=== PATIENT | male | born 1955 | race Caucasian/White ===

== ENCOUNTER 2019-11-23 03:00 | Emergency (ER) | payer OTHER, SELFPAY ==
[2019-11-23 03:01] VITALS: BP 132/80; PULSE 90; RESP 15; TEMP 37; O2SAT 97; BMI 22.6
--- NOTE | 2019-11-23 03:17 | RAD_ITS ---
STUDY: X-RAY - LEFT HAND REASON FOR EXAM: Male, 63 years old. Injury TECHNIQUE: 3 view(s) of the hand. COMPARISON: None. FINDINGS: Normal radiocarpal articulation. Normal distal radioulnar joint. Normal visualized carpal bones. Normal carpal articulations There is mild degenerative arthrosis of the carpometacarpal (CMC) articulation of the thumb. Normal second through fifth carpometacarpal joints. Mildly demineralized metacarpi. There is minimal degenerative arthrosis of the metacarpophalangeal (MCP) joints. There is degenerative arthrosis of the interphalangeal joint of the thumb with articular joint space narrowing. Normal proximal and distal phalanges of the thumb. Normal metacarpophalangeal joints of the second through fifth fingers. There is mild degenerative change in the distal interphalangeal joint of the second and fifth digits. Normal phalanges of the second through fifth fingers. The soft tissue structures are unremarkable. RAD/Hand Min 3 Views IMPRESSION: Degenerative change. No visualized acute fracture. Electronically Signed: Mahi Perez MD at 4:40 EDT Tel , Service support ,
--- NOTE | 2019-11-23 03:17 | RAD_ITS ---
STUDY: X-RAY - PELVIS REASON FOR EXAM: Male, 63 years old. Injury TECHNIQUE: One view of the pelvis was obtained. COMPARISON: None. FINDINGS: There is a non-specific bowel gas pattern. Is postoperative change within the pelvis and left lower quadrant. Normal bilateral iliac wings, sacroiliac joints and visualized sacrum. Normal visualized bilateral superior and inferior pubic rami. Normal pubic symphysis. Normal ischial tuberosities. Normal visualized right femoral head. Normal right acetabulum. Normal right hip joint. Normal visualized left femoral head. Normal left acetabulum. Normal left hip joint. RAD/Pelvis 1 or 2 Views IMPRESSION: Postoperative change in the abdomen and pelvis. No visualized acute fracture. Electronically Signed: Mahi Perez MD at 4:44 EDT Tel , Service support ,
[2019-11-23] MEDS: Acetaminophen 500 MG Tablet 1000 MG PO (03:22)
--- NOTE | 2019-11-23 03:30 | ED.DCSUM_ITS ---
History of Present Illness Chief Complaint: Fall Informant: Patient Occurred: Today - JPTA Fall down steps #: entire flight, around 11-12 Usually ambulates: Without assistance Location: left hand/elbow/shoulder, left buttock Quality of Pain: Aching Current Severity: Mild Maximum Severity: Moderate Worsened by: Sitting forward, palpating low back, using hand Relieved by: Remaining still and sitting comfortably Associated Symptoms: Negative for: Parasthesias, Weakness, Loss of function, Inability to ambulate, Loss of consciousness, Amnesia Narrative: Patient got up in the middle of the night to have a bowel movement which he does frequently due to remote colectomy, he states due to a door not fully opening when he pushed it, he lost his balance and fell down a nearby flight of stairs, it was dark. No prodromal symptoms. No loss of consciousness, he states he bumped his head but he does not have any major head injury. He takes no anticoagulants or antiplatelets. He has no loss of function anywhere, but was concerned because he fell down a whole flight so presents for evaluation. - Past Medical History (1) HTN (hypertension) Status: Chronic (2) Hyperlipemia Status: Chronic (3) Hypothyroidism Status: Chronic (4) GERD (gastroesophageal reflux disease) Status: Chronic Past Medical History - Allergies and Home Meds Allergies/Adverse Reactions: Allergies No Known Allergies Allergy (Verified 11/23/19 03:07) Primary Care Physician: Fantasma Downs MD [COURTESY STAFF PHYSICIAN] - As Needed Lives: Spouse/ Significant Other Smoking Status: Never smoker Review of Systems General: Denies: Chills, Fever, Sweats Eyes: Denies: Visual changes - bilaterally, Diplopia ENT: Denies: Bilateral ear pain, Rhinorrhea, Sore throat Cardiovascular: Denies: Chest pain, Palpitations Respiratory: Denies: Dyspnea, Cough, Dyspnea on exertion Gastrointestinal: Denies: Abdominal pain, Nausea, Vomiting, Diarrhea, Melena, Hematochezia Genitourinary: Denies: Dysuria, Hematuria, Frequency Musculoskeletal: Reports: Back pain - left buttock/low back, Extremity Pain - LUE. Denies: Neck pain Skin: Denies: Rash, Wounds Neurological: Reports: Headache - mild. Denies: Weakness, Numbness Physical Exam Vital Signs/Narrative: Vital Signs Temp Pulse Resp BP Pulse Ox 11/23/19 03:01 98.6 F 90 15 132/80 H 97 Inital Vital Signs reviewed: Yes General: Well nourished, Well developed, - - Well-appearing, no distress Head: Normocephalic, Atraumatic Eyes: Perrl, EOMI - Without pain or diplopia ENT: TM's clear, No hemotympanum or drainage, No trauma Neck: Nontender, Full ROM. Negative for: Spinal Tenderness Cardiovascular: Regular rate, Regular rhythm, No murmurs Respiratory: No distress, CTA bilaterally, Chest nontender Abdomen: Soft, Nontender, Nondistended, Normal bowel sounds Back: Nontender. Negative for: Spinal Tenderness Extremeties: Full range of motion throughout all 4 extremities. Mildly tender in the left hand at contusion. No tenderness in the left shoulder or the acromioclavicular joint, full range of motion there. Same with the elbow, no bony tenderness. Tender at the posterior aspect of the left pelvic brim, no laxity in the pelvis with AP compression. Skin: Normal color, No rash, Trauma - Abrasion left acromion posteriorly. Small contusion dorsal left hand, over the base of the fourth metacarpal approximately. No deformity. Skin intact. Also small contusion left elbow posteriorly, just proximal to the olecranon. Contusion/abrasion left pelvic b rim posteriorly in the buttock area. Neurological: Alert, Oriented x3, Cranial nerves II-XII grossly intact, Normal Strength, Normal Sensation, Normal Gait, - - GCS 15 Psychological: Normal affect, Normal Mood Diagnostic/Tx/Re-eval Clinical Impression(s) from Imaging Studies Pelvis X-Ray 11/23/19 03:17 IMPRESSION: Postoperative change in the abdomen and pelvis. No visualized acute fracture. Electronically Signed: Mahi Perez MD at 4:44 EDT Tel , Service support , Left hand x-ray, 3 view, interpreted by ED physician: No acute fracture. - Medical Decision Making After given the patient options for pain control, he was given Tylenol and an ice pack. X-rays of the left hand and the pelvis were obtained, and are unremarkable as above. He has minor bruising of the left shoulder and elbow but since he has no limitations of range, bony tenderness, or significant pain in these joints, x-rays were not felt necessary and the patient agreed. He did not have any other injured areas. There is no objective evidence of injury to his head, he has a minor headache but takes no anticoagulants, and he has evidence of trauma in other areas that took more force so I met a low suspicion of any intracranial injury which we discussed as well. Supportive care advised, patient was reassured, will be offered something else for pain. He is asking for prescription for something, we discussed tramadol and he is okay with that. ED Disposition - Plan for ED Patient: Disposition: Home or Assisted Living Diagnosis: Fall down steps, Contusion of left upper extremity, Contusion of lower back Instructions: Contusions (Bruises) Prescriptions: traMADol [Ultram] 50 mg PO Q4H PRN PRN 2 Days #10 tab PRN Reason: Pain Prescription Printed Referrals: Fantasma Downs MD [COURTESY STAFF PHYSICIAN] - As Needed
[2019-11-23] MEDS: traMADol 50 MG Tablet PO (05:03)
[2019-11-23 05:04] VITALS: BP 116/73; PULSE 76; RESP 15; O2SAT 97
== END 2019-11-23 05:06 | disposition home or self-care (01) ==
PROVIDERS: Emergency Provider Emergency Medicine
DX: S30.0XXA Contusion of lower back and pelvis, initial encounter (principal); S40.212A Abrasion of left shoulder, initial encounter; S60.222A Contusion of left hand, initial encounter; S50.02XA Contusion of left elbow, initial encounter; W10.9XXA Fall (on) (from) unspecified stairs and steps, initial encounter; Y93.9 Activity, unspecified; Y92.9 Unspecified place or not applicable; Z90.49 Acquired absence of other specified parts of digestive tract
CPT/HCPCS: 72170; 73130; 99283